=== PATIENT | female | born 1945 | race Caucasian/White ===

== ENCOUNTER 2016-04-16 08:40 | Day surgery (SDC) | payer MEDICARE ==
--- NOTE | 2016-04-10 16:23 | HP ---
HISTORY AND PHYSICAL: DATE OF ADMISSION/SURGERY: 04/16/16 DATE OF OFFICE VISIT: 04/10/16 SURGEON: Alana Wright MD. PROCEDURE: Left knee arthroscopy with partial medial meniscectomy, possible chondroplasty and possi ble synovectomy. CHIEF COMPLAINT: Left knee pain. HISTORY OF PRESENT ILLNESS: Ms. Montejo is a 70-year-old female with complaints of left knee pain. She has failed conservative management and has elected to proceed with left knee arthroscopy, which is scheduled for 04/16/16. PAST MEDICAL HISTORY: Breast cancer, hypertension, high cholesterol, hypothyroidism. PAST SURGICAL HISTORY: Bilateral mastectomy, deviated septum surgery, 2 hernia repairs, complete hy sterectomy, right knee arthroscopy, and right total knee arthroplasty. CURRENT MEDICATIONS: 1. Percocet. 2. Amlodipine. 3. Simvastatin. 4. Levothyroxine. 5. Anastrozole. 6. Melatonin. 7. Aspirin. 8. Centrum multivitamin. 9. Vitamin E. 10. Vitamin D3. 11. Vitamin B. 12. Calcium. 13. Hydrochlorothiazide. 14. Effexor. ALLERGIES: PENICILLIN. FAMILY HISTORY: Lung, breast, and liver cancer. SOCIAL HISTORY: She is a 70-year-old female. She lives with her . She does not smoke or us e drugs. She uses occasional alcohol. REVIEW OF SYSTEMS: A complete 14-point review of systems is reviewed with the patient. She has no history of anesthesia problems. No history of DVT, pulmonary embolus, or bleeding disorder. 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 PHYSICAL EXAMINATION GENERAL: She is well developed, well nourished, in no acute distress. VITAL SIGNS: She stands 5 feet 5 inches tall and weighs about 175 pounds. Her blood pressure is 14 7/95 and her heart rate is 89. HEENT: She is normocephalic, atraumatic. NECK: Supple. No palpable lymph nodes. Trachea is midline. LUNGS: Clear to auscultation bilaterally. No wheezes, rhonchi, or rales. HEART: Regular rate and rhythm. Strong S1 and S2. No murmurs, gallops, or rubs. No peripheral jamison ma. ABDOMEN: Soft, nontender, nondistended. MUSCULOSKELETAL: Left lower extremity skin is intact. Some tenderness to palpation over the medial aspect of the knee with mild effusion. She has full range of motion. She is neurovascularly intac t distally with intact sensation. NEUROLOGIC: She is alert and oriented x3. Cranial nerves II through XII are intact. ASSESSMENT AND PLAN: Ms. Montejo is a 70-year-old female with complaints of left knee pain. She pike s a medial meniscus tear and has elected to proceed with left knee arthroscopy with partial medial m eniscectomy, possible chondroplasty and possible synovectomy. This surgery is scheduled for [address] Wright. She was given Percocet for postoperative pain control. She will follow up with Dorcas Wright in 10 to 14 days. RISA MCCORD [id number]/[facility] #: [id number]
[~2016-04-16 08:40] MED LIST: Buffered Lidocaine 1% SYR 3ML* 3 ML/SYR SYRINGE INTRADERM ONE; Famotidine IV* 10 MG/ML 2 ML (20 mg) IV ONE
[2016-04-16] MEDS ORDERED: Famotidine IV* 10 MG/ML 2 ML (20 mg) ONE (08:58)
[2016-04-16] MEDS ORDERED: Buffered Lidocaine 1% SYR 3ML* 3 ML/SYR SYRINGE ONE (08:58)
[2016-04-16] MEDS ORDERED: Clindamycin 900 MG IVPREMIX(* 900 MG/50 ML SDV IV ONE (08:58)
[2016-04-16] MEDS ORDERED: fentaNYL* 50 MCG/ML 2 ML VIAL (100 MCG VIAL) ONE (09:46)
[2016-04-16] MEDS ORDERED: Midazolam* 1 MG/ML 5 ML VIAL (5 MG) ONE (09:46)
[2016-04-16] MEDS ORDERED: EPINEPHrine AMP 1 MG/ML ONE (11:23)
[2016-04-16] MEDS ORDERED: Bupivacaine 0.5% SDV PF* 30 ML VIAL ONE (11:23)
[2016-04-16] MEDS ORDERED: methylPREDNISolone ACETATE 80* 80 MG/ML 1 ML VIAL ONE (11:23)
[2016-04-16] MEDS ORDERED: Propofol* 10 MG/ML 20 ML BTL IV PUSH ONE (12:39)
[2016-04-16] MEDS ORDERED: Dexamethasone IV* 4 MG/ML 1 ML (4 MG) ONE (12:39)
[2016-04-16] MEDS ORDERED: Ondansetron INJ* 2 MG/ML VIAL ONE (12:39)
[2016-04-16] MEDS ORDERED: Ketorolac INJ* 30 MG/ML 1 ML VIAL ONE (12:39)
[2016-04-16] MEDS ORDERED: Lidocaine 2% MPF* 2 ML VIAL ONE (12:39)
[2016-04-16] MEDS ORDERED: Midazolam* 1 MG/ML 2 ML VIAL (2 MG) ONE (12:45)
[2016-04-16 14:32] VITALS: BP 124/79
--- NOTE | 2016-04-17 00:33 | OP ---
DATE OF OPERATION: 04/16/16 - [facility] DATE OF : 47 SURGEON: Alana Wright MD ANESTHESIOLOGIST: Spinal. ANESTHESIA: Dr. Alicea. PRE-OP DIAGNOSES: Left knee pain, mild osteoarthritis, medial meniscal tear. POST-OP DIAGNOSES: Left knee severe degenerative osteoarthritis of the medial and patellofemoral compartment, posteromedial meniscal tear, anterior synovitis. OPERATIVE PROCEDURE: Left knee arthroscopy with partial medial meniscectomy, medial compartment chondroplasty and anterior synovectomy. ESTIMATED BLOOD LOSS: Less than 25 cc. COMPLICATIONS: None. SPECIMEN: None. BRIEF HISTORY/INDICATION: Ms. Montejo is a 71-year-old female who injured her left knee when she twisted it several weeks ago on vacation. She tripped over an iguana, twisting the left knee, and has had severe 10/10 pain since then. Conservative treatment with physical therapy, brace wear, pain medication and intra-articular injections failed. An MRI confirmed a medial meniscal tear. Radiographs and MRI confirmed some mild arthritic changes but did not indicate severe arthritis. She elected to undergo left knee arthroscopy with possible meniscectomy and chondroplasty. Informed consent was obtained from the patient. She understood the risks of the procedure included but were not limited to bleeding, infection, damage to nearby structures, continued pain, need for further surgery, stroke, heart attack, blood clot, and . She wished to proceed. INTRAOPERATIVE FINDINGS: Intraoperatively, the patient was found to have severe arthritis of the medial and patellofemoral compartment. Patellofemoral compartment had a significant amount of exposed subchondral bone. Medial compartment had a large area of exposed subchondral bone along the majority of the weightbearing surface of the medial femoral condyle. There was a large cartilage flap as well in the weightbearing portion of the medial femoral condyle. Medial meniscus had a complex type tear along the posterior one third involving the white red zone. ACL appeared to be intact. DESCRIPTION OF PROCEDURE: Ms. Montejo was identified in the preanesthesia unit. Her left lower extremity was marked as the correct operative side. Informed consent was signed and placed in the chart. The patient was taken to the operating room and placed under spinal anesthesia. A tourniquet was placed on the left thigh but was not inflated. Left lower extremity was prepped and draped in the usual sterile fashion. Preop time-out was made to correctly identify the patient's side and site. Appropriate perioperative antibiotics were given within 1 hour of incision. A 0.5 cm standard anterolateral portal incision was made with 15 blade and carried down to the capsule. Trocar was introduced. As soon as the water and light sources were turned on, there was immediate visualization of the suprapatellar pouch. A tour of the knee joint was performed. Suprapatellar pouch had some small fragments of cartilage floating in the joint fluid. There was exposed subchondral bone along the majority of the patella and trochlear groove without any cartilage flaps. There was significant amount of anterior synovitis. Medial gutters showed no loose body or plica. Medial compartment showed posterior medial meniscus tear. Medial femoral condyle had exposed subchondral bone with cartilage flapping, which was displaceable and visible. ACL appeared to be intact. The leg was placed in a [id number]-aran position. Cartilage was largely intact with no obvious meniscal tear. Lateral gutter showed no abnormality or loose body. Under direct visualization, a medial portal incision was made with 15 blade. Probe was introduced and another tour of the knee joint was performed. The posteromedial meniscus had a displaceable tear, which was complex type along the root and posterior one third of the medial meniscus in the white-red zone. A straight biter was used to remove the displaceable portion of the meniscus. This was in the white- red zone. Smooth border of the posterior medial meniscus was obtained. This was further smoothed using the shaver and radiofrequency ablation wand. Next, the shaver and radiofrequency ablation wand were used to remove any synovitis from the anterior joint line. There was a large amount of this noted that did seem to impinge with range of motion. Once this was cleared in a conservative fashion, attention was turned to the medial femoral condyle. There was a large piece of displaced cartilage. This was carefully removed with the radiofrequency ablation wand. Any displaceable flaps were smoothed with the radiofrequency ablation wand in a conservative fashion. Probe was used to evaluate the cartilage along the rest of the medial and patellofemoral compartments. No further displaceable cartilage flaps were noted. The knee was copiously irrigated with sterile saline until there were no further joint cartilage fragments in the joint fluid. All instruments were carefully removed. An intra-articular injection of 80 mg of Depo-Medrol and 6 cc of 0.25% Marcaine was placed in the knee joint. The incisions were closed using 3- 0 nylon suture. The incisions were covered in Xeroform, 4x4's, and Webril. Jordan wrap and cold pack were placed over this. The patient's anesthesia was reversed without difficulty. She was taken to the PACU in stable condition. Intended weightbearing will be weightbearing as tolerated. Intended DVT prophylaxis will be aspirin. The patient and her understand that I did find advanced arthritis in the knee joint. She will follow up in 2 weeks' time for suture removal. [id number]/[facility] #: [id number] MTDD
== END 2016-04-16 14:28 | disposition home or self-care (01) ==
LOC: OR 08:40
PROVIDERS: ATTEND Orthopaedic Surgery Adult Reconstructive Orthopaedic Surgery
DX: S83.232A Complex tear of medial meniscus, current injury, left knee, initial encounter (principal); M17.12 Unilateral primary osteoarthritis, left knee; M65.862 Other synovitis and tenosynovitis, left lower leg; Z85.3 Personal history of malignant neoplasm of breast; E03.9 Hypothyroidism, unspecified; I10 Essential (primary) hypertension; W01.0XXA Fall on same level from slipping, tripping and stumbling without subsequent striking against object, initial encounter; Y92.89 Other specified places as the place of occurrence of the external cause
CPT/HCPCS: J0171; J1040; J1100; J1885; J2250; J2405; J2704; J3010

== ENCOUNTER → 2016-04-30 | Day surgery (SDC) | payer MEDICARE ==
[~2016-04-30] MED LIST changes: -Buffered Lidocaine 1% SYR 3ML* 3 ML/SYR SYRINGE INTRADERM ONE; -Famotidine IV* 10 MG/ML 2 ML (20 mg) IV ONE; +Lidocain 1% EPI 1:100,000 * 30 ML MDV ONE; +Sodium Bicarbonate 8.4% SYR* 10 ML SYRINGE ONE
[2016-04-30 13:07] VITALS: BP 142/78
--- NOTE | 2016-05-01 04:45 | OP ---
DATE OF OPERATION: 04/30/16 - [facility] DATE OF : 47 SURGEON: Jose Antonio Lewis MD CREASING [employer] CUTTING PRESS FEEDER: RISA Collins ANESTHESIOLOGIST: None. ANESTHESIA: Local only with 1% lidocaine with epinephrine. PRE-OP DIAGNOSIS: Right trigger thumb. POST-OP DIAGNOSIS: Right trigger thumb. OPERATIVE PROCEDURE: Release of A1 ilan, right trigger thumb. INDICATIONS: Jovanny is a 71-year-old female, who has had three injections to the thumb. I have given her two myself. She has had improvement, but ultimately it has come back and it is triggering pretty much every time she flexes the IP joint down. We talked about risks and benefits and she elected to proceed with the surgery. EBL: 5 mL. COMPLICATIONS: None. FINDINGS: As expected. DESCRIPTION OF PROCEDURE: Jovanny was seen in the preoperative holding area and the correct side and site were marked. We had a time-out, then I infiltrated the operative site with 1% lidocaine with epinephrine and a little bit of bicarbonate. Twenty or so minutes later, we came back to the operating room where the arm was prepped and draped in the usual fashion and another formal time-out was performed. Transverse incision was made utilizing the volar flexion crease at the MP joint. Dissection was carried down and the ulnar and radial digital nerves were identified and retracted with some Ragnell retractors. I then used a 15 blade to longitudinally incise the A1 ilan. The release of the A1 ilan was completed proximally and distally with a tenotomy scissors. I checked and there was absolutely no sites of compression or tension on the tendon. I then had her flex and extend the thumb multiple times and there were absolutely no triggering. Therefore, I went ahead and irrigated the wound, closed the skin with some 5-0 nylon. The wound was dressed with Xeroform, 4x4, some sterile Webril, and an Jordan wrap. She was taken to recovery room in stable condition. [id number]/[facility] #: [id number] MTDD
== END | disposition home or self-care (01) ==
LOC: OREAST 10:42
PROVIDERS: ATTEND Orthopaedic Surgery Hand Surgery
DX: M65.311 Trigger thumb, right thumb (principal)

== ENCOUNTER 2016-05-21 08:12 | Inpatient (IN) | payer MEDICARE ==
--- NOTE | 2016-05-18 22:56 | HP ---
HISTORY AND PHYSICAL: DATE OF OFFICE VISIT: 05/18/16 DATE OF SURGERY: 05/21/16 SURGEON: Alana Wright MD PROCEDURE: Left total knee arthroplasty. CHIEF COMPLAINT: Left knee pain. HISTORY OF PRESENT ILLNESS: Ms. Montejo is a 71-year-old female with complaints of left knee pain. She has failed conservative management and has elected to proceed with the left total knee arthroplasty which is scheduled for 05/21/[address] Wright. PAST MEDICAL HISTORY: 1. Breast cancer. 2. Hypertension. 3. High cholesterol. 4. Hypothyroidism. PAST SURGICAL HISTORY: 1. Bilateral mastectomy. 2. Deviated septum. 3. Two hernia repairs. 4. Complete hysterectomy. 5. Right knee scope and right total knee arthroplasty. CURRENT MEDICATIONS: 1. Percocet. 2. Amlodipine. 3. Simvastatin. 4. Levothyroxine. 5. Anastrozole. 6. Melatonin. 7. Aspirin. 8. Centrum multivitamin. 9. Vitamin E. 10. Vitamin D3. 11. Vitamin B. 12. Calcium. 13. Hydrochlorothiazide. 14. Effexor. ALLERGIES: To PENICILLIN. FAMILY HISTORY: Lung and liver cancer. SOCIAL HISTORY: She is a 71-year-old female. She lives with her . She does not smoke or use drugs. Uses occasional alcohol. REVIEW OF SYSTEMS: A complete 14-point review of systems was reviewed with the patient. 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 Has not had any episodes since that time. PHYSICAL EXAMINATION GENERAL: She is a well developed, well nourished. In no acute distress. VITAL SIGNS: She stands 5 feet 6-1/2 inches tall, weighs 199 pounds. Her blood pressure is 146/93, her heart rate is 74. HEENT: She is normocephalic, atraumatic. NECK: Supple. No palpable lymph nodes. Trachea is midline. PULMONARY: Lungs are clear to auscultation bilaterally. No wheezes, rhonchi or rales. CARDIOLOGIC: Regular rate and rhythm. Strong S1, S2. No murmurs, gallops, or rubs. ABDOMEN: Soft, nontender, nondistended. NEUROLOGIC: She is alert and oriented x3. Cranial nerves II through XII are intact. MUSCULOSKELETAL: Left lower extremity, the skin is intact. She has tenderness over the medial and lateral joint line. Moderate joint effusion. Her lower extremity muscle group strengths are intact at 5/5. She has intact sensation, 2 + dorsalis pedis pulses. ASSESSMENT AND PLAN: Ms. Montejo is a 71-year-old female with complaints of left knee pain secondary to advanced osteoarthritis. She has failed conservative management and has elected to proceed with a left total knee arthroplasty which is scheduled for 05/21/[address] Wright. Coumadin, Colace and Percocet were sent to her pharmacy at today's visit for postoperative DVT prophylaxis and pain control. She will see Dr. Wright back in 14 days after the surgery. RISA MCCORD [id number]/[facility] [place] #: [id number] MTDD
[~2016-05-21 08:12] MED LIST changes: +Buffered Lidocaine 1% SYRIN* 3 ML/SYR SYRINGE INTRADERM ONE; +Famotidine IV* 10 MG/ML 2 ML (20 mg) IV ONE; -Lidocain 1% EPI 1:100,000 * 30 ML MDV ONE; +Metoclopramide TAB* 10 MG PO ONE; -Sodium Bicarbonate 8.4% SYR* 10 ML SYRINGE ONE
[2016-05-21] MEDS ORDERED: Clindamycin 900 MG IVPREMIX(* 900 MG/50 ML SDV IV ONE (08:15)
[2016-05-21] MEDS ORDERED: Metoclopramide TAB* 10 MG ONE (08:15)
[2016-05-21] MEDS ORDERED: Famotidine IV* 10 MG/ML 2 ML (20 mg) ONE (08:15)
[2016-05-21] MEDS ORDERED: Ketorolac INJ* 30 MG/ML 1 ML VIAL ONE (12:15)
[2016-05-21] MEDS ORDERED: Lidocaine 2% PF* 5 ML VIAL ONE (12:15)
[2016-05-21] MEDS ORDERED: Propofol* 10 MG/ML 20 ML BTL IV PUSH ONE (12:15)
[2016-05-21] MEDS ORDERED: KETAMINE HCL* 50 MG/ML 10 ML VIAL ONE (12:15)
[2016-05-21] MEDS ORDERED: Midazolam* 1 MG/ML 5 ML VIAL (5 MG) ONE (12:15)
[2016-05-21] MEDS ORDERED: Dexamethasone IV* 4 MG/ML 1 ML (4 MG) ONE (12:15)
[2016-05-21] MEDS ORDERED: Morphine PF AMP (0.5MG/ML)* 5 MG/10 ML AMP ONE (12:15)
[2016-05-21] MEDS ORDERED: Ondansetron INJ* 2 MG/ML VIAL ONE (12:15)
[2016-05-21] MEDS ORDERED: fentaNYL* 50 MCG/ML 2 ML VIAL (100 MCG VIAL) ONE (12:15)
[2016-05-21] MEDS ORDERED: Bupivacaine 0.5% SDV PF* 30 ML VIAL ONE (12:17)
[2016-05-21] MEDS ORDERED: Midazolam* 1 MG/ML 2 ML VIAL (2 MG) ONE (12:48)
[2016-05-21] MEDS ORDERED: Propofol* 500 MG/50 ML BTL ONE (12:59)
[2016-05-21] MEDS ORDERED: fentaNYL* 50 MCG/ML 2 ML VIAL (100 MCG VIAL) IV PRN (13:40)
[2016-05-21] MEDS ORDERED: Ondansetron INJ* 2 MG/ML VIAL IV PRN ×2 (13:40→13:42)
[2016-05-21] MEDS ORDERED: Phenylephrine INJ* 50 MG in NS 0.9% 250 ML* 245 ML IV PRN (13:40)
[2016-05-21] MEDS ORDERED: diPHENhydraMINE IV* 50 MG/ML 1 ml VIAL (BENADRYL) IV PRN ×2 (13:40→13:42)
[2016-05-21] MEDS ORDERED: Naloxone* 0.4 MG/ML 1 ML VIAL IV PRN (13:42)
[2016-05-21] MEDS ORDERED: oxyCODONE/Acetamin 5/325 MG* TAB PO PRN (13:42)
[2016-05-21] MEDS ORDERED: EPHEDrine (Pressors)* 50 MG/ML VIAL IV PUSH PRN (13:49)
[2016-05-21] MEDS ORDERED: Lactated Ringers 500 ml BAG* 500 ML IV PRN (13:49)
[2016-05-21] MEDS ORDERED: Ropivacaine* 300 MG in NS 0.9% 250 ML* 240 ML EPIDURAL SCH (14:00)
[2016-05-21] MEDS ORDERED: Morphine INJ* 2 MG/ML 1 ML SYRINGE IV PRN (15:13)
[2016-05-21] MEDS ORDERED: Polyethylene Glycol 3350* 17 GM PACKET PO PRN (15:13)
[2016-05-21] MEDS ORDERED: Bisacodyl SUPP* 10 MG SUPP PR PRN (15:13)
[2016-05-21] MEDS ORDERED: Magnesium Hydroxide LIQ* 30 ML UDC PO PRN (15:13)
[2016-05-21] MEDS ORDERED: Acetaminophen TAB* 325 MG PO PRN (15:13)
[2016-05-21] MEDS ORDERED: LACTULOSE* 30 ML UDC PO PRN (15:13)
--- NOTE | 2016-05-21 16:01 | RAD ---
Indication: Postop LEFT total knee replacement. Comparison: March 02, 2016 radiographs. Technique: Portable AP and cross table lateral views LEFT knee. Report: Status post total knee replacement. Anterior surgical drain in place. Post-op fluid and gas is seen in the joint space and anterior subcutaneous tissues. Alignment is anatomic. No periprosthetic fracture evident. IMPRESSION: Normal post-op appearance following LEFT total knee replacement.
[2016-05-21] MEDS ORDERED: Warfarin TAB(*) 6 MG PO ONE (17:00)
[2016-05-21] MEDS: Atorvastatin* 20 MG TAB PO SCH (17:53)
[2016-05-21] MEDS ORDERED: Clindamycin 600 MG IVPREMIX(* 600 MG/50 ML SDV IV SCH (18:00)
[2016-05-21] MEDS ORDERED: [UNRECOGNIZED DRUG - OTHER] PO SCH (18:00)
--- NOTE | 2016-05-21 20:45 | CONS ---
CONSULTATION REPORT: DATE OF CONSULT: 05/21/2016. PRIMARY CARE PROVIDER: Dr. Oliva Schroeder. CONSULTATION REQUESTED BY: Dr. Wright in regards to medical management of this patient with history of hypertension and hypothyroidism. CHIEF COMPLAINT: Status post left total knee arthroplasty. HISTORY OF PRESENT ILLNESS: Jovanny Montejo is a 71-year-old female who suffered from left knee injury in January of 2016. She was in [place] with her . Apparently, someone was trying to scare an iguana off the tree and the iguana started running in her direction, tripped the patient. The patient fell on her left knee damaging her meniscus. She had initially arthroscopic surgery of this left knee, but unfortunately, it appeared to be too damaged. The patient underwent left total knee arthroplasty performed by Dr. Wright. Postoperatively , she is doing well. She has history of chronic hypothyroidism and hypertension and medical management consultation was requested due to that. PAST MEDICAL HISTORY: 1. History of bilateral mastectomies due to breast cancer. No chemotherapy or radiation was needed. 2. Hypertension. 3. leg edema 4. Hypothyroidism. 5. History of deviated nasal septum surgery. 6. Hernia repair x2. 7. Hysterectomy. 8. Status post right total knee arthroplasty in the past. OUTPATIENT MEDICATIONS: Include: 1. Norvasc 5 mg daily. 2. Vitamin E 400 units daily. 3. Effexor XR 37.5 mg daily. 4. "Potassium" 1 tablet daily. 5. Multivitamin 1 tablet daily. 6. Levothyroxine 50 mcg daily. 7. Hydrochlorothiazide 12.5 mg daily. 8. Furosemide - she stated it is usually two tablets only when she travels for leg edema. 9. Vitamin B complex 1 tablet daily. 10. Lipitor 20 mg daily. 11. Aspirin 81 mg daily. 12. Vitamin C 500 mg daily. 13. Anastrozole 1 mg daily. ALLERGIES: PENICILLIN. FAMILY HISTORY: Positive for father who at the age of 80 secondary to lung cancer. Mother at the age of 83 secondary to uterine cancer. SOCIAL HISTORY: The patient is a retired [employer]. She denies any alcohol, tobacco, or drug use. Her surrogate is her , Richard. REVIEW OF SYSTEMS: Please see history of present illness. The patient has a history of chronic left knee pain ever since January 2016. All the remaining 14 systems were reviewed with the patient and were otherwise negative. PHYSICAL EXAM: Blood pressure of 126/65, heart rate of 63 and regular, respiratory rate 20, oxygen saturation 97% on 4 L of oxygen nasal cannula, and temperature of 97.5. General: The patient is a very pleasant 71-year-old female, who is in no acute distress. Alert, awake, and oriented x3. HEENT: Head, atraumatic, normocephalic. Eyes: Pupils equal and reactive to light and accommodation. Oropharynx clear. Mucosa moist. Neck: Supple. No JVD, no bruit bilaterally. Cardiovascular: Regular rate and rhythm. No murmur. Respiratory: Clear to auscultation bilaterally. Abdomen: Soft, nontender. Bowel sounds present in all 4 quadrants. Extremities: There is no edema. Pulses are +2 bilaterally. No clubbing or cyanosis. The patient's left knee was not unwrapped from the postsurgical dressings and the cryo unit. Neuro Evaluation: Speech clear. Cranial nerves II through XII grossly intact. Motor strength is 5/5 bilaterally. LABORATORY DATA: No recent labs were available ASSESSMENT AND PLAN: 1. In regards to the patient's status post left knee surgery, that is deferred to Dr. Wright. 2. In regards to the patient's hypothyroidism, her hydrochlorothiazide and Lasix are going to be held. The patient is going to be continued on her Norvasc 5 mg. 3. For depression, Effexor is going to be continued. 4. For hypothyroidism, levothyroxine is going to be continued. 5. For DVT prophylaxis, as per primary service with Orthopedics. 6. The patient's code status is full. TIME SPENT: Approximately 55 minutes was spent on admission of this patient, more than half that time was spent [id number] with the patient during the interview and physical exam. CC: Dr. Oliva Schroeder; Dr. Wright* [id number]/[facility] #: [id number]/[facility] #: [id number] MTDD
[2016-05-21] MEDS: Docusate CAP* 100 MG PO SCH (21:18)
[2016-05-21] MEDS: Clindamycin 600 MG IVPREMIX(* 600 MG/50 ML SDV IV SCH (21:19)
[2016-05-21] MEDS: oxyCODONE/Acetamin 5/325 MG* TAB PO PRN (23:53)
[2016-05-22] MEDS: oxyCODONE/Acetamin 5/325 MG* TAB PO PRN ×5 (04:06→20:34)
[2016-05-22] MEDS: Ketorolac INJ* 30 MG/ML 1 ML VIAL IV PRN ×2 (04:06→12:21)
[2016-05-22] MEDS ORDERED: diPHENhydraMINE IV* 50 MG/ML 1 ml VIAL (BENADRYL) IV PRN (04:30)
[2016-05-22] MEDS ORDERED: oxyCODONE/Acetamin 5/325 MG* TAB PO PRN (04:30)
[2016-05-22] MEDS: Clindamycin 600 MG IVPREMIX(* 600 MG/50 ML SDV IV SCH ×3 (05:02→20:37)
[2016-05-22] MEDS ORDERED: Ondansetron INJ* 2 MG/ML VIAL IV PRN (06:00)
[2016-05-22] MEDS ORDERED: Ondansetron TAB* 4 MG PO PRN (06:00)
--- NOTE | 2016-05-22 06:22 | OP ---
OPERATIVE REPORT: DATE OF OPERATION: 05/21/16 DATE OF : 47 SURGEON: Alana Wright MD CONSERVATION AGENT: RISA Bruno ANESTHESIOLOGIST: Dr. Oviedo. ANESTHESIA: Spinal with adductor nerve block. PRE-OP DIAGNOSIS: Severe end-stage degenerative osteoarthritis of the left knee joint. POST-OP DIAGNOSIS: Severe end-stage degenerative osteoarthritis of the left knee joint. OPERATIVE PROCEDURE: Left total knee arthroplasty. INDICATIONS: Ms. Montejo is a 71-year-old female with severe left knee pain due to degenerative oste oarthritis. The patient failed conservative treatment with antiinflammatories, pain medications, in traarticular injections, physical therapy, brace wear, and arthroscopy. At the time of arthroscopy, she was noted to have severe end-stage arthritis of the medial and patellofemoral compartment. Due to continued severe pain and decreased quality of life, the patient elected to continue with left t otal knee arthroplasty. Informed consent was obtained from the patient. She understood the risks of procedure included, but were not limited to bleeding, infection, damage to nearby structures, continued pain, need for furt her surgery, intraoperative fracture, nerve palsy, hardware failure, loosening, knee stiffness or lo ss of motion, stroke, heart attack, blood clot, and . She wished to proceed. TOURNIQUET TIME: 47 minutes. COMPLICATIONS: None. ESTIMATED BLOOD LOSS: 200 cc. HARDWARE USED: This was cemented [employer] total knee hardware. Two packages of Simplex bon e cement. For the femur, a size 5 left posterior stabilized narrow femoral component. For the tibi a, a size 3 tibial baseplate. For the insert, a 13-mm posterior stabilized articular insert and for the patella, a 29-mm 3-peg All-Poly patella. PATHOLOGY: Bone and cartilage from the left knee joint sent to Pathology. INTRAOPERATIVE FINDINGS: Intraoperatively, the patient was noted to have severe end-stage arthritis involving the medial and patellofemoral compartments with full- thickness loss of cartilage. DESCRIPTION OF PROCEDURE: Ms. Montejo was identified in the preanesthesia unit. Her left lower extre mity was marked as the correct operative side. Informed consent was signed and placed in the chart. The patient was taken to the operating room and placed under spinal anesthesia with adductor nerve block. Segundo catheter was placed. Tourniquet was placed on the left thigh. Left lower extremity was prepped and draped in the usual sterile fashion. Preop time-out was made to correctly identify the patient's side and site. Appropriate preoperative antibiotics were given within 1 hour of incis ion. Tourniquet was inflated and total tourniquet time for this procedure was 47 minutes. A 14-cm midlin e incision was made with a 10 blade and carried down to the extensor mechanism. A new 10 blade was used to make a standard medial parapatellar arthrotomy. Patella was subluxed laterally. Electrocau jasmyne was used to subperiosteally elevate soft tissue off the superomedial tibia to the mid sagittal plane. The patella was subluxed laterally and the knee was flexed up. The anterior horn of the lat eral meniscus and ACL were sharply released. Loss of cartilage along the entire patella and medial femoral condyle was noted. A drill was used to enter the distal femur. Intramedullary distal femor al cutting guide was then pinned into proper position. Oscillating saw was used to make distal femo ral cut. Next, the external rotation guide was pinned down on the distal femur. The distal femur w as sized to a size 5. Size 5 multi-cutting jig was pinned on the distal femur, oscillating saw was used to make the appropriate 4- chamfer cuts. Next, the PCL was completely released. The tibia was subluxed anteriorly. Extramedullary tibial cut ting guide was pinned on the proximal tibia. The proximal tibial bone was carefully removed. The c ut was made perpendicular to the mechanical axis of the tibia. The knee was brought out into full e xtension. A spacer block had good fit with medial and lateral ligamentous balancing. Flexion and e xtension gaps were well balanced. The knee was flexed up. The lamina poacher operator was placed both medially and laterally. Any remaining meniscus was carefully removed with electrocautery. Curved osteotome and rongeur were used to remove any posterior osteophytes. Tibial tray and drop rods were placed to once again confirm satisfactor y proximal tibial cut. A size 5 narrow left femur trial was then impacted on to the left femur. There was a stable fit. T he box for the posterior stabilized implant was prepared using a reamer and box cut osteotome. A si ze 3 tibial tray trial with an 11-mm insert trial was placed. The knee was taken through range of m otion and noted to have full extension to 125 degrees of flexion with good patellofemoral tracking. The patella was everted. 9 mm of patellar bone and cartilage was carefully removed using an oscilla ting saw. The patella was sized to a size 29. The 3 peg holes were drilled through the size 29 vicente de. A 29 trial patella was placed and the knee was taken through range of motion. There was good p atellofemoral tracking. At this point, all trials were carefully removed. The tibia was subluxed anteriorly and sized to a size 3. Proximal tibia was prepared using a size 3 keel punch. All bony cut surfaces were copiousl y irrigated with sterile saline and dried. The final implants were cemented into place, starting wi th the tibia, followed by the femur, and lastly the patella. A 13-mm insert trial was placed while the knee was brought out into full extension and the cement was allowed to fully cure. Tourniquet wa s turned down at 47 minutes. Once the cement was fully cured, the trial insert was removed. Electr ocautery was used to obtain meticulous hemostasis. Any excess cement was carefully removed. Final insert chosen was a 13- mm posterior stabilized articular insert. This was locked into position on the tibial tray without difficulty. Stability of the insert was checked and rechecked and noted to be stable. The knee was copiously irrigated with sterile saline. The extensor mechanism was closed using inter rupted #1 Vicryl's over a medium Hemovac drain. The rest of the incision was closed in a layered f ashion using 0 and 2-0 Vicryl's. Skin was closed using running 3-0 nylon suture. Sterile Xeroform, 4x4's, and Webril were used to cover the incision. Jordan wrap and cold pack were placed over this. T he patient's anesthesia was reversed without difficulty. She was taken to the PACU in stable condit ion. Intended weightbearing will be weightbearing as tolerated. Intended DVT prophylaxis will be Marcelina van with a Lovenox bridge. [id number]/[facility] #: [id number]
[2016-05-22 07:50] LABS: Hematocrit 36 % (35-47)
--- NOTE | 2016-05-22 08:09 | PN ---
Progress Note - Progress Note SOAP: Subjective: [71 y/o female s/p L TKA 05/[address] Wright. Afebrile, VSS overnight, patient reports no complaints, pain controlled with pain medication. ] Objective: [General- Well appearing, sitting comfortably. MSK- Dressing intact, L knee, drain removed without complication, bloody output. neg homans sign b/l, + DF/PF, minimal swelling b/l LE's, sensation grossly intact. ] Vital Signs Temp 98.2 F 05/22/16 03:20 Pulse 69 05/22/16 03:20 Resp 18 05/22/16 04:06 BP 130/71 05/22/16 03:20 Pulse Ox 97 05/22/16 03:20 Intake & Output 05/21/16 05/22/16 05/22/16 18:59 06:59 18:59 Intake Total 2800 960 Output Total 1500 Balance 2800 -540 Weight 200 lb Intake: IV Fluids 2800 LR 2800 Oral 960 Output: Segundo 1500 Other: # Bowel Movements 0 Laboratory Results - last 24 hr 05/22/16 05/22/16 07:25 07:25 Hgb 12.0 Hct 36 INR (Anticoag Therapy) 1.05 Assessment: [71 y/o female s/p L TKA 05/[address] Wright.] Plan: [- DVT prophy- Continue lovenox, coumadin 6mg tonight - Continue PT/ OT - H&H stable, continue to monitor ] Active Medications Generic Name Dose Route Start Last Admin Trade Name Freq PRN Reason Stop Dose Admin Acetaminophen 650 mg 05/21/16 15:13 Tylenol Tab* PO Q4H PRN PAIN OR TEMPERATURE Amlodipine Besylate 5 mg 05/22/16 09:00 Norvasc Tab* PO QAM CHRISTIE Atorvastatin Calcium 20 mg 05/21/16 18:00 05/21/16 17:53 Lipitor* PO 20 mg QPM CHRISTIE Administration Bisacodyl 10 mg 05/21/16 15:13 Dulcolax Supp* SC DAILY PRN constipation Diphenhydramine HCl 12.5 mg 05/22/16 04:30 Benadryl Iv* IV Q6H PRN PRURITIS Docusate Sodium 100 mg 05/21/16 21:00 03/02/17 21:18 Colace Cap* PO 100 mg BID CHRISTIE Administration Enoxaparin Sodium 30 mg 05/22/16 12:00 Lovenox(*) SUBCUT Q24H CHRISTIE Lactated Ringer's 1,000 mls @ 100 mls/hr 05/21/16 16:00 05/22/16 03:20 Lactated Ringers 1000 Ml Bag* IV 100 mls/hr PER RATE CHRISTIE Administration Clindamycin HCl/Dextrose 600 mg in 50 mls @ 100 mls/hr 05/21/16 21:00 05:02 Cleocin 600 Mg Ivpremix(*) Sdv IV 100 mls/hr 0500,1300,2100 CHRISTIE Administration Ketorolac Tromethamine 30 mg 05/21/16 13:42 05/22/16 04:06 Toradol Inj* IV 05/22/16 13:46 30 mg Q6H PRN Administration PAIN Lactulose 30 ml 05/21/16 15:13 Lactulose* PO Q6H PRN constipation Magnesium Hydroxide 30 ml 05/21/16 15:13 Milk Of Magnesia Liq* PO Q6H PRN constipation Non-Formulary Medication 50 mcg 05/21/16 18:00 05/21/16 17:50 Levothorax Thyroid PO Not Given QPM [facility] Ondansetron HCl 4 mg 05/22/16 06:00 Zofran Inj* IV Q6H PRN nausea Ondansetron HCl 4 mg 05/22/16 06:00 Zofran Tab* PO Q6H PRN NAUSEA Oxycodone HCl 10 mg 05/22/16 04:30 Roxycodone Tab* PO Q4H PRN SEVERE PAIN Oxycodone/Acetaminophen 1 tab 05/22/16 04:30 Percocet 5/325 Tab* PO Q3H PRN PAIN - MODERATE Oxycodone/Acetaminophen 2 tab 05/22/16 04:30 Percocet 5/325 Tab* PO Q3H PRN PAIN - MODERATE Polyethylene Glycol/Electrolytes 17 gm 05/21/16 15:13 Miralax* PO DAILY PRN Constipation Venlafaxine HCl 37.5 mg 05/22/16 09:00 Effexor Xr Cap* PO QAM [facility]
[2016-05-22 08:10] LABS: BUN/Creatinine Ratio 16.4 (8-20); Calcium 8.7 mg/dL (8.6-10.3); EGFR African American 111.9 (>60); Potassium 4.1 mmol/L (3.5-5.0)
--- NOTE | 2016-05-22 08:20 | PN ---
Subjective Date of Service: 05/22/16 Interval History: Pt feels well. No new complaints. Pain in left post op knee is " tolerable" Objective Active Medications: Acetaminophen (Tylenol Tab*) 650 mg PO Q4H PRN PRN Reason: PAIN OR TEMPERATURE Amlodipine Besylate (Norvasc Tab*) 5 mg PO QAM [facility] Atorvastatin Calcium (Lipitor*) 20 mg PO QPM [facility] Last Admin: 05/21/16 17:53 Dose: 20 mg Bisacodyl (Dulcolax Supp*) 10 mg OK DAILY PRN PRN Reason: constipation Diphenhydramine HCl (Benadryl Iv*) 12.5 mg IV Q6H PRN PRN Reason: PRURITIS Docusate Sodium (Colace Cap*) 100 mg PO BID [facility] Last Admin: 05/21/16 21:18 Dose: 100 mg Enoxaparin Sodium (Lovenox(*)) 30 mg SUBCUT Q24H [facility] Hydrochlorothiazide (Hydrodiuril Tab*) 12.5 mg PO DAILY [facility] Lactated Ringer's (Lactated Ringers 1000 Ml Bag*) 1,000 mls @ 100 mls/hr IV PER RATE [facility] Last Admin: 05/22/16 03:20 Dose: 100 mls/hr Clindamycin HCl/Dextrose (Cleocin 600 Mg Ivpremix(*) Sdv) 600 mg in 50 mls @ 100 mls/hr IV 0500,1300,2100 [facility] Last Admin: 05/22/16 05:02 Dose: 100 mls/hr Ketorolac Tromethamine (Toradol Inj*) 30 mg IV Q6H PRN PRN Reason: PAIN Stop: 05/22/16 13:46 Last Admin: 05/22/16 04:06 Dose: 30 mg Lactulose (Lactulose*) 30 ml PO Q6H PRN PRN Reason: constipation Levothyroxine Sodium (Synthroid Tab*) 50 mcg PO QPM [facility] Magnesium Hydroxide (Milk Of Magnesia Liq*) 30 ml PO Q6H PRN PRN Reason: constipation Ondansetron HCl (Zofran Inj*) 4 mg IV Q6H PRN PRN Reason: nausea Ondansetron HCl (Zofran Tab*) 4 mg PO Q6H PRN PRN Reason: NAUSEA Oxycodone HCl (Roxycodone Tab*) 10 mg PO Q4H PRN PRN Reason: SEVERE PAIN Oxycodone/Acetaminophen (Percocet 5/325 Tab*) 1 tab PO Q3H PRN PRN Reason: PAIN - MODERATE Oxycodone/Acetaminophen (Percocet 5/325 Tab*) 2 tab PO Q3H PRN PRN Reason: PAIN - MODERATE Polyethylene Glycol/Electrolytes (Miralax*) 17 gm PO DAILY PRN PRN Reason: Constipation Venlafaxine HCl (Effexor Xr Cap*) 37.5 mg PO QAM CHRISTIE Warfarin Sodium (Coumadin Tab(*)) 6 mg PO ONCE@1700 [facility] PRN Reason: Protocol Stop: 05/22/16 17:01 Vital Signs 05/21/16 05/21/16 05/21/16 08:49 15:10 15:15 Temperature 97.2 F 97.5 F Pulse Rate 82 67 72 Respiratory 16 16 18 Rate Blood Pressure 137/74 111/58 111/51 (mmHg) O2 Sat by Pulse 97 98 97 Oximetry 05/21/16 05/21/16 05/21/16 15:20 15:25 15:30 Temperature Pulse Rate 68 66 63 Respiratory 18 18 18 Rate Blood Pressure 116/62 108/67 109/67 (mmHg) O2 Sat by Pulse 97 98 98 Oximetry 05/21/16 05/21/16 05/21/16 15:45 16:00 16:15 Temperature Pulse Rate 62 63 64 Respiratory 20 20 18 Rate Blood Pressure 123/62 126/65 114/67 (mmHg) O2 Sat by Pulse 97 97 96 Oximetry 05/21/16 05/21/16 05/21/16 16:30 16:53 17:05 Temperature 97.8 F Pulse Rate 67 65 Respiratory 18 18 18 Rate Blood Pressure 111/75 118/64 (mmHg) O2 Sat by Pulse 96 99 Oximetry 05/21/16 05/21/16 05/21/16 17:20 18:02 18:26 Temperature 97.8 F 98.3 F Pulse Rate 65 84 Respiratory 18 16 Rate Blood Pressure 118/64 144/72 (mmHg) O2 Sat by Pulse 99 97 96 Oximetry 05/21/16 05/21/16 05/21/16 18:51 20:00 21:00 Temperature 97.7 F Pulse Rate 79 Respiratory 18 16 16 Rate Blood Pressure 131/61 (mmHg) O2 Sat by Pulse 97 Oximetry 05/21/16 05/21/16 05/21/16 21:10 22:00 23:20 Temperature 98.0 F 97.9 F Pulse Rate 70 70 Respiratory 20 16 16 Rate Blood Pressure 125/69 111/68 (mmHg) O2 Sat by Pulse 97 97 Oximetry 05/21/16 05/22/16 05/22/16 23:53 00:00 01:53 Temperature Pulse Rate Respiratory 18 18 Rate Blood Pressure (mmHg) O2 Sat by Pulse 97 Oximetry 05/22/16 05/22/16 03:20 04:06 Temperature 98.2 F Pulse Rate 69 Respiratory 18 18 Rate Blood Pressure 130/71 (mmHg) O2 Sat by Pulse 97 Oximetry Oxygen Devices in Use Now: None Appearance: 71 yo F in nAd, aAOx3 Eyes: No Scleral Icterus, PERRLA Ears/Nose/Mouth/Throat: NL Teeth, Lips, Gums, Mucous Membranes Moist Neck: NL Appearance and Movements; NL JVP, Trachea Midline Respiratory: Symmetrical Chest Expansion and Respiratory Effort, Clear to Auscultation Cardiovascular: NL Sounds; No Murmurs; No JVD, RRR Abdominal: NL Sounds; No Tenderness; No Distention, No Hepatosplenomegaly Lymphatic: No Cervical Adenopathy Extremities: No Clubbing, Cyanosis, - - trace left ankle edema Skin: No Nodules or Sclerosis, - - left post op knee with cryo unit in place, post op dressings not uncovered Neurological: Alert and Oriented x 3, NL Muscle Strength and Tone Result Diagrams: 05/22/16 07:25 05/22/16 07:25 Assess/Plan/Problems-Billing Assessment: 71 yo F with h/o HTN, hypothyroidism s/p L knee replacement surgery by Dr. Mckeon on 05/31/16 - Patient Problems (1) S/P total knee replacement Comment: As per Mnoy Wright. Doing well with pain control. (2) History of hypertension Comment: controlled. cont Norvasc. Will restart HCTZ. Used furosemide only for leg edema when traveling (3) Hypothyroid Comment: cont L thyroxine supplement (4) Cancer of right breast Comment: Arimidex held when in hospital (5) DVT prophylaxis Comment: Lovenox and Coumadin as per ortho service
[2016-05-22] MEDS ORDERED: Hydrochlorothiazide TAB* 25 MG PO SCH (09:00)
[2016-05-22] MEDS: Docusate CAP* 100 MG PO SCH ×2 (09:15→20:34)
[2016-05-22] MEDS: amLODIPine TAB* 5 MG PO SCH (09:15)
[2016-05-22] MEDS: Venlafaxine EXT RELEASE CAP* 37.5 MG PO SCH (09:15)
[2016-05-22] MEDS: Hydrochlorothiazide TAB* 25 MG PO SCH (09:16)
[2016-05-22] MEDS ORDERED: Enoxaparin(*) 30 MG/0.3 ML SYR SUBCUT SCH (12:00)
--- NOTE | 2016-05-22 12:13 | CONS ---
CONSULTATION REPORT: ADDENDUM: Please note that the patient takes Lasix at unknown dose but she stated it is usually two tablets only when she travels for leg edema. [id number]/[facility] #: [id number]
[2016-05-22] MEDS: oxyCODONE TAB* 5 MG TAB PO PRN (15:42)
[2016-05-22] MEDS ORDERED: Warfarin TAB(*) 6 MG PO SCH (17:00)
[2016-05-22] MEDS: Atorvastatin* 20 MG TAB PO SCH (17:20)
[2016-05-22] MEDS ORDERED: LEVOTHYROXINE 50 MCG PO SCH (18:00)
[2016-05-23] MEDS: oxyCODONE/Acetamin 5/325 MG* TAB PO PRN ×3 (00:09→11:10)
[2016-05-23] MEDS: Clindamycin 600 MG IVPREMIX(* 600 MG/50 ML SDV IV SCH (04:44)
[2016-05-23 05:12] VITALS: BP 132/75
[2016-05-23 07:35] LABS: Hematocrit 33 % (35-47); Hemoglobin 11.1 g/dl (12.0-16.0)
[2016-05-23] MEDS: Venlafaxine EXT RELEASE CAP* 37.5 MG PO SCH (08:43)
[2016-05-23] MEDS: Docusate CAP* 100 MG PO SCH (08:43)
[2016-05-23] MEDS: amLODIPine TAB* 5 MG PO SCH (08:43)
[2016-05-23] MEDS: Hydrochlorothiazide TAB* 25 MG PO SCH (08:43)
[2016-05-23] MEDS: oxyCODONE TAB* 5 MG TAB PO PRN (08:50)
--- NOTE | 2016-05-23 08:58 | PN ---
Progress Note - Progress Note SOAP: Subjective: Patient resting comfortably with no complaints, pain controlled with PO meds Objective: Vital Signs Temp Pulse Resp BP Pulse Ox 97.8 F 71 16 132/75 97 05/23/16 04:42 05/23/16 04:42 05/23/16 08:50 05/23/16 04:42 05/23/16 04:42 Laboratory Last Values Hgb 11.1 g/dl (12.0-16.0) L 05/23/16 07:10 Hct 33 % (35-47) L 05/23/16 07:10 INR (Anticoag Therapy) 1.31 (0.89-1.11) H 05/23/16 07:10 Sodium 136 mmol/L (133-145) 05/22/16 07:25 Potassium 4.1 mmol/L (3.5-5.0) 05/22/16 07:25 Chloride 105 mmol/L (101-111) 05/22/16 07:25 Carbon Dioxide 25 mmol/L (22-32) 05/22/16 07:25 Anion Gap 6 mmol/L (2-11) 05/22/16 07:25 BUN 11 mg/dL (6-24) 05/22/16 07:25 Creatinine 0.67 mg/dL (0.51-0.95) 05/22/16 07:25 Est GFR ( Amer) 111.9 (>60) 05/22/16 07:25 Est GFR (Non-Af Amer) 87.0 (>60) 05/22/16 07:25 BUN/Creatinine Ratio 16.4 (8-20) 05/22/16 07:25 Glucose 105 mg/dL (70-100) H 05/22/16 07:25 Calcium 8.7 mg/dL (8.6-10.3) 05/22/16 07:25 incision: c/d; dressing changed PE: 2+ DP pulses, intact sensation, intact B/L LE strengths Assessment: s/p left TKA Plan: continue PT-WBAT Continue Lovenox/Coumadin/SCD's DVT prophylaxis home today; RTC 10-14 days
--- NOTE | 2016-05-23 14:18 | DS ---
DISCHARGE SUMMARY: DATE OF ADMISSION: 05/21/16 DATE OF DISCHARGE: 05/23/16 SURGEON: Alana Wright MD. PRINCIPAL DIAGNOSIS: End-stage osteoarthritis of the left knee. DISCHARGE DIAGNOSIS: End-stage osteoarthritis of the left knee. HISTORY OF PRESENT ILLNESS: Ms. Montejo is a 71-year-old female with complaints of left knee pain secondary to advanced osteoarthritis. She failed conservative management and elected to proceed with a left total knee arthroplasty. HOSPITAL COURSE: Ms. Montejo was admitted electively to the hospital on and underwent a left total knee arthroplasty. She tolerated the procedure well with no complications. Postoperatively, she was placed on Lovenox and Coumadin for DVT prophylaxis. On postoperative day 1, her H and H was 12 and 36. On postop day 2, her H and H was 11.1 and 33, her INR went from 1.05 to 1.31, and her hospital course was unremarkable. At the time of discharge, she was afebrile and ambulating well. DISCHARGE MEDICATIONS: 1. Norvasc. 2. Lipitor. 3. Colace. 4. Percocet. 5. Coumadin. 6. Levothyroxine. 7. Effexor. 8. Hydrochlorothiazide. PHYSICAL EXAMINATION: Upon discharge, she is afebrile. Her vital signs were stable. Her wound was clean and dry. No signs of infection. She has 2+ dorsalis pedis pulses. Her lower extremity muscular strengths were intact at 5/ 5. She has intact sensation. She is ambulating well with the aid of a walker. DISCHARGE INSTRUCTIONS: Ms. Montejo is discharged home in stable condition. She has been given a prescription for Percocet for postoperative pain control as well as Colace to help with constipation. She is also given Coumadin and instructed to take 8 mg tonight and 8 mg Wednesday night, have her INR rechecked on Wednesday. She is weightbearing as tolerated. She can shower. She is not allowed to take a bath. She can pat the incision dry and redress with the Jordan wrap. She will start in-home physical therapy next week and Dr. Wright would like to see her back in her clinic in 10-14 days. We have asked her to call our office sooner with any questions or concerns. RISA MCCORD [id number]/[facility] #: [id number] KASI
== END 2016-05-23 11:30 | disposition home or self-care (01) | DRG 470 ==
LOC: AA 08:12 → SSU 16:48
PROVIDERS: ADMIT Orthopaedic Surgery Adult Reconstructive Orthopaedic Surgery; ATTEND Orthopaedic Surgery Adult Reconstructive Orthopaedic Surgery
PROC: 0SRD0J9 Replacement of Left Knee Joint with Synthetic Substitute, Cemented, Open Approach (ICD-10-PCS; principal; 2016-05-21 11:00)
DX: M17.12 Unilateral primary osteoarthritis, left knee (principal); I10 Essential (primary) hypertension; M25.762 Osteophyte, left knee; E78.00 Pure hypercholesterolemia, unspecified; E03.9 Hypothyroidism, unspecified; Z96.651 Presence of right artificial knee joint; Z79.82 Long term (current) use of aspirin; Z85.3 Personal history of malignant neoplasm of breast; Z79.899 Other long term (current) drug therapy; Z88.0 Allergy status to penicillin; Z80.1 Family history of malignant neoplasm of trachea, bronchus and lung; Z80.0 Family history of malignant neoplasm of digestive organs; Z80.49 Family history of malignant neoplasm of other genital organs
CPT/HCPCS: 36415; 62323; 80048; 85014; 85018; 85610; 88305; 88311; A9270-GY; C1776; J1100; J1650; J1885; J2250; J2405; J2704; J2795; J3010

== ENCOUNTER 2017-09-30 15:46 | Day surgery (SDC) | payer MEDICARE ==
[~2017-09-30 15:46] MED LIST changes: -Buffered Lidocaine 1% SYRIN* 3 ML/SYR SYRINGE INTRADERM ONE; -Famotidine IV* 10 MG/ML 2 ML (20 mg) IV ONE; +Lidocaine 1%* 5 ML VIAL ONE; +Lidocaine 1.5% EPI 1:200,000* 30 ML SDV ONE; -Metoclopramide TAB* 10 MG PO ONE; +Sodium Bicarbonate 8.4% IV* 50 ML VIAL ONE
[2017-09-30] MEDS ORDERED: Bupivacaine 0.5% PF 10 ML VIAL INJ ONE (17:18)
[2017-09-30 18:07] VITALS: BP 132/85
--- NOTE | 2017-10-01 03:08 | OP ---
DATE OF OPERATION: 09/30/17 [facility] DATE OF : 47 SURGEON: Jose Antonio Lewis MD SALON SUPERVISOR: RISA Kilpatrick ANESTHESIOLOGIST: None. ANESTHESIA: Local only with 1% lidocaine with epinephrine 1:200,000 and bicarbonate 8.4%. PRE-OP DIAGNOSIS: Left trigger thumb. POST-OP DIAGNOSIS: Left trigger thumb. OPERATIVE PROCEDURE: Release of left trigger thumb. INDICATIONS: Jovanny has a left trigger thumb; it is quite severe. It has recurred after an injection. We talked about risks and benefits including the risk of digital nerve injury. She wanted to proceed. ESTIMATED BLOOD LOSS: 5 mL. COMPLICATIONS: None. FINDINGS: As expected. DESCRIPTION OF PROCEDURE: Jovanny was seen in the preoperative holding area. The correct side, site and procedure were identified. We had a time-out. I then infiltrated the operative area with 1% lidocaine with epinephrine and bicarbonate. A short time later, we came back to the operative room and the arm was prepped and draped in the usual fashion. I made a 1 cm transverse incision in the MP joint flexion crease. Full thickness flaps were raised off the flexor tendon sheath bluntly with a Tenotomy scissors. Ragnell retractors were placed to protect the digital nerves. I then longitudinally incised the A1 ilan. The release was extended proximally and distally with the Tenotomy scissors. I then had to flex the thumb at the DIP joint multiple times. She could induce no triggering. The wound was irrigated out. The skin was closed with 4-0 nylon suture. Dressings were placed and she was taken to the recovery room in stable condition. [id number]/[facility] #: [id number] [facility]ITAL[facility]
== END 2017-09-30 18:10 | disposition home or self-care (01) ==
LOC: OREAST 15:46
PROVIDERS: ATTEND Orthopaedic Surgery Hand Surgery
DX: M65.312 Trigger thumb, left thumb (principal); E03.9 Hypothyroidism, unspecified; Z85.3 Personal history of malignant neoplasm of breast; I10 Essential (primary) hypertension; E78.5 Hyperlipidemia, unspecified; M19.90 Unspecified osteoarthritis, unspecified site; Z88.0 Allergy status to penicillin